=== PATIENT | male | born 1950 | race Two or more races ===

== ENCOUNTER 2020-11-07 10:48 | Inpatient (IN) | payer MEDICAID, OTHER ==
[~2020-11-07] VITALS: Ht 185.4 cm; Wt 75.9 kg
[2020-11-07 12:09] LABS: Basophils # (auto) 0 10 ^3/uL (0-0.2); Eosinophils # (auto) 0.2 10 ^3/uL (0-0.8); Hemoglobin 10.2 g/dL (13.5-17.5); Lymphocytes # (auto) 1.6 10 ^3/uL (0.4-5.4); Neutrophils # (auto) 2.4 10 ^3/uL (1.6-8.6); Nucleated Red Blood Cells % 0.2 %; White Blood Cell 4.4 10^3/uL (4.4-10.8)
[2020-11-07 12:11] LABS: Basophils % (auto) 0.5 % (0.0-2.0); Hematocrit 28.5 % (41.0-53.0); Lymphocytes % (auto) 35.9 % (10.0-50.0); Mean Corpuscular Hemoglobin 43.6 pg (28.0-32.0); Mean Corpuscular Hgb Conc. 35.8 g/dL (32.0-36.0); Mean Corpuscular Volume 121.8 fL (80.0-100.0); Monocytes # (auto) 0.2 10 ^3/uL (0-1.3); Monocytes % (auto) 3.8 % (0.0-12.0); Neutrophils % (auto) 55.8 % (37.0-80.0); Platelet Count (auto) 123 10^3/uL (140-450); Red Blood Cells 2.34 10^6/uL (4.5-5.90); Red Cell Distribution Width 19.3 % (11.8-14.3)
[2020-11-07 12:23] LABS: Albumin 3.8 g/dL (3.4-5.0); Calcium 8.2 mg/dL (8.5-10.1); Potassium 3.9 mmol/L (3.5-5.1)
[2020-11-07 12:26] LABS: BUN/Creatinine Ratio 39.1; Bilirubin, Total 1.6 mg/dL (0.2-1.0); Total Protein 7.6 g/dL (6.4-8.2)
[2020-11-07] MEDS ORDERED: SODIUM CHLORIDE 0.9% 1,000 ML IV ONE (17:15)
[2020-11-07] MEDS ORDERED: SODIUM CHLORIDE 0.9% 1,000 ML IVB ONE (17:15)
[2020-11-07] MEDS ORDERED: ENOXAPARIN SOD 80 MG/0.8ML SYRINGE SC ONE (17:30)
[2020-11-07 19:12] LABS: INR 1.11 (0.9-1.15); Partial Thromboplastin Time 25.6 sec (23.0-31.2)
[2020-11-07] MEDS ORDERED: LACTULOSE 20Gm/30ML SOLN PO PRN (19:15)
[2020-11-07] MEDS ORDERED: LORazepam 0.5 MG TAB PO PRN (19:15)
[2020-11-07] MEDS ORDERED: NITROGLYCERIN 0.4 MG SL TAB SL PRN (19:15)
[2020-11-07] MEDS ORDERED: MORPHINE SULF INJ 2 MG/ML SYRINGE 1ML IV PRN (19:15)
[2020-11-07] MEDS ORDERED: levoFLOXacin 500MG 100 ML IV ONE (19:15)
[2020-11-07] MEDS ORDERED: ACETAMINOPHEN 500 MG TAB PO PRN (19:15)
[2020-11-07] MEDS ORDERED: traMADol HCL 50 MG TAB PO PRN (19:15)
[2020-11-07] MEDS ORDERED: PROMETHAZINE HCL 25 MG/ML 1ML IV PRN (19:15)
[2020-11-07] MEDS ORDERED: IOHEXOL 350 MG/ML 100ML IJ ONE (19:21)
[2020-11-07 19:48] LABS: Amylase 34 U/L (25-115); Lipase 122 U/L (73-393)
[2020-11-07] MEDS: ENOXAPARIN SOD 80 MG/0.8ML SYRINGE SC SCH (22:00)
[2020-11-07] MEDS: CLINDAMYCIN 600MG IV 50 ML IV SCH (23:27)
[2020-11-08] VITALS (8 sets, daily range): BP systolic 100–122; BP diastolic 57–73
[2020-11-08 05:33] LABS: Potassium 4.4 mmol/L (3.5-5.1)
[2020-11-08 05:40] LABS: Albumin 3.2 g/dL (3.4-5.0); BUN/Creatinine Ratio 35.6; Bilirubin, Total 1.5 mg/dL (0.2-1.0); Calcium 7.9 mg/dL (8.5-10.1); Total Protein 6.7 g/dL (6.4-8.2)
[2020-11-08 05:43] LABS: Basophils # (auto) 0 10 ^3/uL (0-0.2); Basophils % (auto) 0.6 % (0.0-2.0); Eosinophils # (auto) 0.2 10 ^3/uL (0-0.8); Eosinophils % (auto) 4.5 % (0.0-7.0); Hematocrit 27.8 % (41.0-53.0); Hemoglobin 9.9 g/dL (13.5-17.5); Lymphocytes # (auto) 1.5 10 ^3/uL (0.4-5.4); Mean Corpuscular Hemoglobin 43.7 pg (28.0-32.0); Mean Corpuscular Hgb Conc. 35.5 g/dL (32.0-36.0); Mean Corpuscular Volume 122.9 fL (80.0-100.0); Monocytes # (auto) 0.2 10 ^3/uL (0-1.3); Monocytes % (auto) 4.6 % (0.0-12.0); Neutrophils # (auto) 1.7 10 ^3/uL (1.6-8.6); Neutrophils % (auto) 48.3 % (37.0-80.0); Nucleated Red Blood Cells % 0.2 %; Platelet Count (auto) 107 10^3/uL (140-450); Red Blood Cells 2.26 10^6/uL (4.5-5.90); Red Cell Distribution Width 19.2 % (11.8-14.3); White Blood Cell 3.6 10^3/uL (4.4-10.8)
[2020-11-08] MEDS: CLINDAMYCIN 600MG IV 50 ML IV SCH ×3 (06:20→21:55)
[2020-11-08] MEDS: PANTOPRAZOLE 40 MG TAB PO SCH (11:07)
[2020-11-08] MEDS: levoFLOXacin 500MG 100 ML IV SCH (11:07)
[2020-11-08] MEDS: ENOXAPARIN SOD 80 MG/0.8ML SYRINGE SC SCH ×2 (11:07→21:55)
[2020-11-08] MEDS ORDERED: LEVOTHYROXINE SODIUM 25 MCG TAB PO ONE (12:00)
[2020-11-09 03:31] LABS: Urine Bacteria NONE SEEN /hpf (None Seen); Urine Blood Negative /uL (Negative); Urine Specific Gravity 1.008 (1.001-1.035); Urine WBC 2 /hpf (0 - 3)
[2020-11-09 05:00] VITALS: BP 93/50
[2020-11-09] MEDS: CLINDAMYCIN 600MG IV 50 ML IV SCH ×3 (05:56→22:39)
[2020-11-09] MEDS: LEVOTHYROXINE SODIUM 25 MCG TAB PO SCH (07:09)
[2020-11-09 08:15] VITALS: BP 106/59
[2020-11-09 09:30] VITALS: BP 106/59
[2020-11-09] MEDS: ENOXAPARIN SOD 80 MG/0.8ML SYRINGE SC SCH ×2 (10:44→22:37)
[2020-11-09] MEDS: levoFLOXacin 500MG 100 ML IV SCH (10:44)
[2020-11-09] MEDS: PANTOPRAZOLE 40 MG TAB PO SCH (10:44)
[2020-11-09 13:00] VITALS: BP 104/64
[2020-11-09 17:00] VITALS: BP 108/61
[2020-11-09 22:13] VITALS: BP 103/63
[2020-11-10 05:23] VITALS: BP 103/85
[2020-11-10] MEDS: CLINDAMYCIN 600MG IV 50 ML IV SCH ×2 (05:59→14:32)
[2020-11-10] MEDS: LEVOTHYROXINE SODIUM 25 MCG TAB PO SCH (05:59)
[2020-11-10 09:00] VITALS: BP 107/72
[2020-11-10] MEDS: ENOXAPARIN SOD 80 MG/0.8ML SYRINGE SC SCH ×2 (10:27→11:43)
[2020-11-10] MEDS: PANTOPRAZOLE 40 MG TAB PO SCH ×2 (10:27→11:42)
[2020-11-10] MEDS: levoFLOXacin 500MG 100 ML IV SCH ×2 (10:27→11:42)
[2020-11-10 12:46] VITALS: BP 106/73
[2020-11-10 14:14] VITALS: BP 106/73
[2020-11-11] MEDS ORDERED: levoFLOXacin 500 MG TAB PO SCH (10:00)
== END 2020-11-10 17:00 | disposition home or self-care (01) | DRG 175 ==
LOC: ER 10:48 → TELE-CENTR 19:13
PROVIDERS: ADMIT Internal Medicine; ATTEND Family Medicine
DX: I26.99 Other pulmonary embolism without acute cor pulmonale (principal); J96.00 Acute respiratory failure, unspecified whether with hypoxia or hypercapnia; J18.9 Pneumonia, unspecified organism; I82.411 Acute embolism and thrombosis of right femoral vein; I82.431 Acute embolism and thrombosis of right popliteal vein; Z20.822 Contact with and (suspected) exposure to COVID-19; D69.6 Thrombocytopenia, unspecified; E03.9 Hypothyroidism, unspecified; D75.89 Other specified diseases of blood and blood-forming organs; D64.9 Anemia, unspecified; I25.10 Atherosclerotic heart disease of native coronary artery without angina pectoris; Z90.49 Acquired absence of other specified parts of digestive tract; Z79.899 Other long term (current) drug therapy
CPT/HCPCS: 36415; 71046; 71260; 74177; 80053; 81001; 81241; 82150; 82378; 83690; 83735; 84443; 85025; 85049; 85302; 85305; 85306; 85610; 85613; 85670; 85705; 85730; 85732; 87426; 93005; 93971; 96361; 96365; G0378; J1956; J3490

== ENCOUNTER 2021-07-20 17:01 | Emergency (ER) | payer MEDICAID ==
[~2021-07-20] VITALS: Ht 182.9 cm; Wt 79.4 kg
[2021-07-20] MEDS ORDERED: APIX5TAB4 PO (18:19)
[2021-07-20] MEDS ORDERED: APIXABAN 5 MG TAB PO ONE (18:30)
[2021-07-20 19:45] VITALS: BP 146/73
== END 2021-07-20 20:12 | disposition home or self-care (01) ==
LOC: ER 17:01
DX: I82.401 Acute embolism and thrombosis of unspecified deep veins of right lower extremity (principal); Z90.49 Acquired absence of other specified parts of digestive tract
CPT/HCPCS: 93971